=== PATIENT | female | born 2000 | race Caucasian/White ===

== ENCOUNTER 2018-09-28 11:33 | Emergency (ER) | payer OTHER ==
[2018-09-28] MEDS: ACETAMINOPHEN 500 MG TAB PO (13:09)
[2018-09-28] MEDS: IBUPROFEN 600 MG TAB PO (13:09)
[2018-09-28] MEDS: PROMETHAZINE/DM (CUP) PO (13:16)
== END 2018-09-28 14:39 | disposition home or self-care (01) ==
LOC: FTE 11:33
DX: J18.9 Pneumonia, unspecified organism (principal)
CPT/HCPCS: 71046; 87400; 99284-25